=== PATIENT | female | born 1960 | race Caucasian/White ===

== ENCOUNTER 2018-02-27 17:00 | Emergency (ER) | payer SELFPAY ==
[~2018-02-27] VITALS: Ht 157.5 cm; Wt 59.0 kg
[2018-02-27] MEDS ORDERED: HYDROCODONE/ACETAMINOPHEN 5/325MG TABLET PO ONE (18:45)
[2018-02-27] MEDS ORDERED: ONDANSETRON 4MG ODT PO ONE (18:45)
[2018-02-27 20:15] VITALS: BP 136/67
== END 2018-02-27 20:43 | disposition home or self-care (01) ==
LOC: ER 17:36
DX: S82.832A Other fracture of upper and lower end of left fibula, initial encounter for closed fracture (principal); S82.52XA Displaced fracture of medial malleolus of left tibia, initial encounter for closed fracture; X58.XXXA Exposure to other specified factors, initial encounter; Y93.89 Activity, other specified; Y92.89 Other specified places as the place of occurrence of the external cause; Y99.8 Other external cause status
CPT/HCPCS: 29515; 73590; 73610; 99284; Q0162